=== PATIENT | female | born 1980 ===

== ENCOUNTER 2023-12-01 10:53 | Outpatient (CLI) | payer BC, SELFPAY ==
--- NOTE | ~2023-12-01 | MR_ITS ---
EXAMINATION: MR brain/brain stem wo/w con DATE: 12/01/2023 11:54 INDICATION: Disorder of pituitary. Hypercortisolemia. TECHNIQUE: Magnetic resonance imaging (MRI) of the brain and brainstem was performed without and with 15 mL MultiHance intravenous contrast. COMPARISON: None. FINDINGS: There is no intracranial hemorrhage, acute infarction, or abnormal intracranial mass lesion . The pituitary is normal in size of height of 5 mm and concave superior margin. The ventricles are n ormal in size. There is a mucous retention cyst in right maxillary sinus. The orbits are normal. The mastoid air cells are normal. IMPRESSION: 1. Normal pituitary. Normal brain. Reviewed, dictated and finalized at location A.
== END 2023-12-01 10:54 ==
LOC: MICIMG 10:54
PROVIDERS: PCP Internal Medicine Endocrinology, Diabetes & Metabolism; Visit Provider Internal Medicine Endocrinology, Diabetes & Metabolism
DX: E23.7 Disorder of pituitary gland, unspecified (principal)
CPT/HCPCS: 70553; A9577